=== PATIENT | female | born 1950 | race Caucasian/White ===

== ENCOUNTER 2017-01-09 16:29 | Inpatient (IN) | payer MEDICARE ==
[~2017-01-09 16:29] MED LIST: ABILIFY2 MG PO; ACCUPRIL20 MG; AMBIEN10 MG; AMBIEN10 MG PO; AMBIEN5 MG PO; AMOX TR-K CLV1 EAC4 PO; AMOXICILLIN875 MG PO; ANEXSIA 5/325 M1 TAB; APIDRA100 U/M; APIDRA100 U/M SQ; ASPIRIN EC81 M1 PO; ASPIRIN EC81 MG PO; CALCIUM; CALCIUM 600 MG1 EACH PO; CALCIUM WITH VI1 TAB PO; CALCIUM/VIT D PO; CALCIUM600 MG PO; CARVEDILOL25 MG PO; CEFDINIR300 M1 PO; COLACE100 M1 PO; COREG12.5 M1 PO; COREG25 M1 PO; CORGARD40 M1 PO; CORGARD40 MG; CPAP; CYCLOBENZAPRINE10 M1 PO; CYCLOBENZAPRINE5 M1 PO; DELTASONE10 MG PO; DULCOLAX10 MG RC; DULERA 200 MCG/13 G1 INH; EQL FISH OIL 1,1 CA1 PO; FERRIC CITRATE210 MG PO; FLEXERIL10 MG; FLEXERIL10 MG PO; FLONASE ALLERG9.9 ML; FLONASE16 G3 NS; FLONASE16 GM; FLUOXETINE HCL40 M1 PO; FUROSEMIDE40 M1 PO; FUROSEMIDE80 M2 PO; GLUCOPHAGE500 MG; GLUCOPHAGE500 MG PO; HUMALOG100 UNIT/1 SC; HUMALOG100 UNITS/; HYDRALAZINE HCL50 M1 PO; HYDROCHLOROTH12.5 M1; HYDROCHLOROTH12.5 MG PO; HYDROCODON-ACE1 EA16 PO; IPRAT-ALBUT 0.5-3 ML IH; IPRAT-ALBUT 0.5-3 ML NEB; ISOSORBIDE DINI30 M1 PO; ISOSORBIDE MONO30 M4 PO; KAYEXALATE453.6 G1 PO; LANTUS100 U/ML; LANTUS100 U/ML SC; LASIX20 MG PO; LASIX40 M1 PO; LASIX40 MG; LASIX40 MG PO; LASIX80 M1 PO; LASIX80 MG; LASIX80 MG PO; LEVAQUIN750 MG PO; LEVEMIR100 U/M SC; LEVEMIR100 UNITS/ SC; LISINOPRIL10 M1 PO; LISINOPRIL20 MG PO; LORTAB 7.5/5001 EA PO; LORTAB 7.5/5001 TAB; MIDRIN CAPSULE1 CAP; MIDRIN CAPSULE1 CAP PO; MIRALAX17 G2 PO; MULTI VITAMIN1 EACH PO; NITROGLYCERIN0.4 M2 SL; NORCO 5-325 TA1 EACH PO; NORVASC5 M1 PO; NORVASC5 M2 PO; NOVOLOG FL100 UNIT/2 SC; NOVOLOG100 U/M SQ; NOVOLOG100 UNITS/ SC; OXYGEN; PERCOCET; PLAVIX75 M1 PO; PLAVIX75 MG; PLAVIX75 MG PO; POTASSIUM; POTASSIUM CHLO10 MEQ PO; POTASSIUM CHLO20 MEQ PO; PRAVACHOL20 MG; PRAVACHOL20 MG PO; PRAVACHOL40 M1 PO; PRAVACHOL40 MG PO; PRINIVIL5 M1 PO; PROMETHAZINE25 MG PO; PROZAC20 M3 PO; PROZAC20 MG; PROZAC20 MG PO; RENVELA800 M1 PO; RISPERDAL0.5 M1 PO; SEROQUEL100 M1 PO; SEROQUEL100 M2 PO; SKELAXIN800 MG PO; STOP HOME MEDICATION; TEMAZEPAM30 MG; TEMAZEPAM30 MG PO; TRESIBA FL100 UNIT/1 SC; TYLENOL325 M1 PO; VITAMIN B12500 MCG PO; XANAX0.5 M1 PO; XANAX0.5 MG; XANAX0.5 MG PO; XANAX1 MG; XANAX1 MG PO; ZOFRAN ODT4 MG PO; ZYRTEC10 M7 PO
[2017-01-09 17:52] LABS: BASO % 0.2 % (0-2); EOS % 1.9 % (0-7); EOSINOPHIL ABSOLUTE COUNT 0.2 tho/cmm (0.0-0.7); HCT-HEMATOCRIT 43.2 % (34.0-49.0); HGB-HEMOGLOBIN 14.5 gm/dl (12.0-15.5); IMMATURE GRANULOCYTES ABSOLUTE 0.06 tho/cmm (0-0.03); IMMATURE GRANULOCYTES PERCENT 0.5 % (0-0.3); LYMPH ABSOLUTE COUNT 1.3 tho/cmm (0.8-4.5); MCH (MEAN CORPUSCULAR HGB) 33.2 pg (28.0-32.0); MCHC MEAN CORPUSCULAR HGB CONC 33.6 % (32.0-36.0); MCV (MEAN CELL VOLUME) 98.9 fl (82.0-96.0); MEAN PLATELET VOLUME 10.6 cmc (9.4-12.4); MONO % 7.2 % (0-12); MONOCYTE ABSOLUTE COUNT 0.8 tho/cmm (0.0-1.2); NEUTROPHIL ABSOLUTE COUNT 9.1 tho/cmm (1.6-8.0); NEUTROPHIL-AUTOMATED 9.1 tho/cmm (1.6-8.0); NEUTROPHILS % 79.2 % (40-80); PLATELET COUNT 335 tho/cmm (150-450); RED BLOOD COUNT 4.37 mil/cmm (4.00-5.20); RED CELL DISTRIBUTION WIDTH 13.7 % (12.4-16.4); WHITE BLOOD COUNT 11.5 tho/cmm (4.0-10.0)
[2017-01-09 18:21] LABS: URINE BILIRUBIN NEGATIVE (NEG); URINE BLOOD SMALL (NEG); URINE GLUCOSE (UA) NEGATIVE (NEG); URINE KETONE NEGATIVE (NEG); URINE LEUKOCYTE ESTERASE POSITIVE (NEG); URINE NITRITE NEGATIVE (NEG); URINE PROTEIN MODERATE (NEG)
[2017-01-09 18:22] LABS: URINE APPEARANCE CLEAR; URINE COLOR YELLOW
[2017-01-09 18:27] LABS: URINE AMORPHOUS 1+; URINE BACTERIA 1+
[2017-01-09 18:28] LABS: URINE EPITHELIAL CELLS 15-30 /[HPF] (0-10)
[2017-01-09 19:21] LABS: ALB/GLOB RATIO 0.6 (0.8-2.0); ALBUMIN 3.9 g/dl (3.5-5.0); ALKALINE PHOSPHATASE 261 U/L (33-138); BILIRUBIN,TOTAL 0.2 mg/dl (0-1.5); BLOOD UREA NITROGEN 28 mg/dl (6-24); CARBON DIOXIDE-VENOUS 28 mmol/L (22-32); CHLORIDE 93 mmol/l (96-110); CREATININE 3.57 mg/dl (0.50-1.10); GLUCOSE 256 mg/dL (70-110); SODIUM 133 mmol/L (135-145); eGFR VALUE FOR BLACK 15 mL/Min
[2017-01-09 19:23] LABS: ALT/SGPT 23 U/L (12-78); ANION GAP 17 mmol/L (0-20); AST/SGOT 19 U/L (10-40); MAGNESIUM 2.2 mg/dl (1.3-2.6); POTASSIUM 4.7 mmol/L (3.7-5.1)
[2017-01-09 19:34] LABS: PROCALCITONIN 0.34 ng/ml (0.05-0.09)
[2017-01-10 05:15] LABS: BASO % 0.1 % (0-2); EOS % 0.1 % (0-7); HGB-HEMOGLOBIN 13.8 gm/dl (12.0-15.5); IMMATURE GRANULOCYTES ABSOLUTE 0.04 tho/cmm (0-0.03); IMMATURE GRANULOCYTES PERCENT 0.3 % (0-0.3); LYMPH % 7.9 % (20-45); LYMPH ABSOLUTE COUNT 1.3 tho/cmm (0.8-4.5); MCH (MEAN CORPUSCULAR HGB) 33.2 pg (28.0-32.0); MCHC MEAN CORPUSCULAR HGB CONC 33.7 % (32.0-36.0); MCV (MEAN CELL VOLUME) 98.6 fl (82.0-96.0); MEAN PLATELET VOLUME 10.7 cmc (9.4-12.4); MONO % 7.2 % (0-12); MONOCYTE ABSOLUTE COUNT 1.1 tho/cmm (0.0-1.2); NEUTROPHIL ABSOLUTE COUNT 13.3 tho/cmm (1.6-8.0); NEUTROPHIL-AUTOMATED 13.3 tho/cmm (1.6-8.0); NEUTROPHILS % 84.4 % (40-80); PLATELET COUNT 281 tho/cmm (150-450); RED BLOOD COUNT 4.16 mil/cmm (4.00-5.20); RED CELL DISTRIBUTION WIDTH 13.8 % (12.4-16.4); WHITE BLOOD COUNT 15.8 tho/cmm (4.0-10.0)
[2017-01-10 05:39] LABS: PROTHROMBIN TIME 11.5 SECONDS (9.0-13.6)
[2017-01-10 05:51] LABS: ALB/GLOB RATIO 0.6 (0.8-2.0); ALBUMIN 3.6 g/dl (3.5-5.0); ALKALINE PHOSPHATASE 245 U/L (33-138); ALT/SGPT 19 U/L (12-78); BILIRUBIN,TOTAL 0.3 mg/dl (0-1.5); C-REACTIVE PROTEIN 0.8 mg/dl (0-0.9); CALCIUM 9.6 mg/dl (8.5-10.5); CARBON DIOXIDE-VENOUS 24 mmol/L (22-32); CHLORIDE 93 mmol/l (96-110); GLUCOSE 350 mg/dL (70-110); PHOSPHOROUS 7.4 mg/dl (2.5-4.9); SODIUM 130 mmol/L (135-145)
[2017-01-10 05:53] LABS: ANION GAP 19 mmol/L (0-20); AST/SGOT 25 U/L (10-40); BLOOD UREA NITROGEN 43 mg/dl (6-24); CREATININE 4.52 mg/dl (0.50-1.10); MAGNESIUM 2.1 mg/dl (1.3-2.6); eGFR VALUE FOR BLACK 11 mL/Min
[2017-01-10 05:54] LABS: TSH-THYROID STIMULATING HORM. 2.98 uIU/ml (0.40-3.80)
[2017-01-10 06:02] LABS: POTASSIUM 6.4 mmol/L (3.7-5.1)
[2017-01-10 07:37] LABS: ESR-ERYTHROCYTE SED RATE 47 mm/hr (0-30)
[2017-01-10 14:11] LABS: POTASSIUM 5.2 mmol/L (3.7-5.1)
[2017-01-11 06:08] LABS: BASO % 0.4 % (0-2); EOS % 2.7 % (0-7); EOSINOPHIL ABSOLUTE COUNT 0.3 tho/cmm (0.0-0.7); HCT-HEMATOCRIT 35.2 % (34.0-49.0); HGB-HEMOGLOBIN 11.7 gm/dl (12.0-15.5); IMMATURE GRANULOCYTES ABSOLUTE 0.03 tho/cmm (0-0.03); IMMATURE GRANULOCYTES PERCENT 0.3 % (0-0.3); LYMPH % 21.7 % (20-45); LYMPH ABSOLUTE COUNT 2.3 tho/cmm (0.8-4.5); MCH (MEAN CORPUSCULAR HGB) 32.6 pg (28.0-32.0); MCHC MEAN CORPUSCULAR HGB CONC 33.2 % (32.0-36.0); MCV (MEAN CELL VOLUME) 98.1 fl (82.0-96.0); MEAN PLATELET VOLUME 10.2 cmc (9.4-12.4); MONO % 10.4 % (0-12); MONOCYTE ABSOLUTE COUNT 1.1 tho/cmm (0.0-1.2); NEUTROPHIL ABSOLUTE COUNT 6.8 tho/cmm (1.6-8.0); NEUTROPHIL-AUTOMATED 6.8 tho/cmm (1.6-8.0); NEUTROPHILS % 64.5 % (40-80); PLATELET COUNT 270 tho/cmm (150-450); RED BLOOD COUNT 3.59 mil/cmm (4.00-5.20); RED CELL DISTRIBUTION WIDTH 13.7 % (12.4-16.4); WHITE BLOOD COUNT 10.6 tho/cmm (4.0-10.0)
[2017-01-11 06:25] LABS: ANION GAP 16 mmol/L (0-20); CALCIUM 9.2 mg/dl (8.5-10.5); CARBON DIOXIDE-VENOUS 27 mmol/L (22-32); CHLORIDE 88 mmol/l (96-110); GLUCOSE 268 mg/dL (70-110); PHOSPHOROUS 7.3 mg/dl (2.5-4.9); POTASSIUM 4.8 mmol/L (3.7-5.1); SODIUM 126 mmol/L (135-145); eGFR VALUE FOR BLACK 8 mL/Min
[2017-01-11 06:33] LABS: BLOOD UREA NITROGEN 73 mg/dl (6-24); CREATININE 6.07 mg/dl (0.50-1.10)
[2017-01-12 07:02] LABS: ANION GAP 22 mmol/L (0-20); BLOOD UREA NITROGEN 93 mg/dl (6-24); CALCIUM 8.6 mg/dl (8.5-10.5); CARBON DIOXIDE-VENOUS 22 mmol/L (22-32); CHLORIDE 90 mmol/l (96-110); CREATININE 6.86 mg/dl (0.50-1.10); GLUCOSE 258 mg/dL (70-110); SODIUM 128 mmol/L (135-145); eGFR VALUE FOR BLACK 7 mL/Min
[2017-01-12 07:09] LABS: POTASSIUM 5.6 mmol/L (3.7-5.1)
--- NOTE | 2017-01-12 12:48 | NUR ---
UNABLE TO DO 1200 ASSESSMENT DUE TO PATIENT BEING UP IN DIALYSIS. PATIENT HAS BEEN IN PROCEDURES ALL DAY SO WASN'T ABLE TO GET ORTHOSTATICS THIS AM.
[2017-01-13 05:53] LABS: BASO % 0.4 % (0-2); EOS % 4.4 % (0-7); EOSINOPHIL ABSOLUTE COUNT 0.3 tho/cmm (0.0-0.7); HCT-HEMATOCRIT 29.6 % (34.0-49.0); HGB-HEMOGLOBIN 9.8 gm/dl (12.0-15.5); IMMATURE GRANULOCYTES ABSOLUTE 0.02 tho/cmm (0-0.03); IMMATURE GRANULOCYTES PERCENT 0.3 % (0-0.3); LYMPH % 20.2 % (20-45); LYMPH ABSOLUTE COUNT 1.5 tho/cmm (0.8-4.5); MCH (MEAN CORPUSCULAR HGB) 32.8 pg (28.0-32.0); MCHC MEAN CORPUSCULAR HGB CONC 33.1 % (32.0-36.0); MEAN PLATELET VOLUME 10.1 cmc (9.4-12.4); MONO % 12.2 % (0-12); MONOCYTE ABSOLUTE COUNT 0.9 tho/cmm (0.0-1.2); NEUTROPHIL ABSOLUTE COUNT 4.5 tho/cmm (1.6-8.0); NEUTROPHIL-AUTOMATED 4.5 tho/cmm (1.6-8.0); NEUTROPHILS % 62.5 % (40-80); PLATELET COUNT 222 tho/cmm (150-450); RED BLOOD COUNT 2.99 mil/cmm (4.00-5.20); RED CELL DISTRIBUTION WIDTH 13.9 % (12.4-16.4); WHITE BLOOD COUNT 7.3 tho/cmm (4.0-10.0)
[2017-01-13 05:59] LABS: INR 0.9 INR (0.9-1.1); PROTHROMBIN TIME 10.4 SECONDS (9.0-13.6)
[2017-01-13 06:10] LABS: CALCIUM 8.5 mg/dl (8.5-10.5); CARBON DIOXIDE-VENOUS 29 mmol/L (22-32); CHLORIDE 97 mmol/l (96-110); SODIUM 135 mmol/L (135-145); eGFR VALUE FOR BLACK 12 mL/Min
[2017-01-13 06:11] LABS: ANION GAP 13 mmol/L (0-20); BLOOD UREA NITROGEN 43 mg/dl (6-24); CREATININE 4.23 mg/dl (0.50-1.10); GLUCOSE 98 mg/dL (70-110); POTASSIUM 4.1 mmol/L (3.7-5.1)
[2017-01-13] MEDS ORDERED: NYSTATIN15 G1 TP (15:12)
[2017-01-13] MEDS ORDERED: NYAMYC15 GM EXT (15:14)
[2017-01-13] MEDS ORDERED: COREG6.25 M1 PO (15:16)
[2017-05-10] MEDS ORDERED: NYSTATIN100000 UNI PO (16:30)
[2017-05-19] MEDS ORDERED: ISOSORBIDE DINI10 M1 PO (09:49)
[2017-05-19] MEDS ORDERED: EFFEXOR XR37.5 M1 PO (09:50)
[2017-06-18] MEDS ORDERED: POLYETHYLENE G255 G1 PO (08:39)
[2017-06-18] MEDS ORDERED: SENNA PLUS TAB1 EAC1 PO (08:40)
[2017-06-25] MEDS ORDERED: TYLENOL EXTRA500 M1 PO (14:43)
[2017-06-25] MEDS ORDERED: BENADRYL25 M3 PO (14:44)
[2017-06-25] MEDS ORDERED: CETIRIZINE HCL10 M1 PO (14:45)
[2017-06-25] MEDS ORDERED: FLONASE ALLERG9.9 ML (14:46)
[2017-06-25] MEDS ORDERED: KAYEXALATE PO (14:54)
[2017-06-25] MEDS ORDERED: AURYXIA PO (14:55)
[2017-06-25] MEDS ORDERED: XANAX0.5 M1 PO (14:57)
[2017-06-25] MEDS ORDERED: HYDROCODON-ACE1 EA16 PO (14:58)
[2017-06-25] MEDS ORDERED: CYCLOBENZAPRINE10 M1 PO (14:59)
[2017-06-25] MEDS ORDERED: [UNRECOGNIZED DRUG - OTHER] TOP (15:23)
[2017-06-25] MEDS ORDERED: ANTIFUNGAL POWDER TOP (15:23)
[2017-06-25] MEDS ORDERED: INTERDRY (15:24)
[2017-06-25] MEDS ORDERED: NOVOLOG FL100 UNIT/2 SC ×2 (15:51→15:53)
[2017-06-25] MEDS ORDERED: OXYGEN (16:07)
== END 2017-01-13 18:00 | DRG 252 ==
LOC: EDMED 16:29 → EMR2 21:17 → PCUA 23:47
PROVIDERS: Family Medicine; Hospitalist; Internal Medicine; Internal Medicine Nephrology; Radiology Diagnostic Radiology; Registered Nurse; ADMIT Internal Medicine
PROC: 05PY03Z Removal of Infusion Device from Upper Vein, Open Approach (ICD-10-PCS; principal; 2017-01-13)
DX: I95.1 Orthostatic hypotension (principal); N18.6 End stage renal disease; I13.2 Hypertensive heart and chronic kidney disease with heart failure and with stage 5 chronic kidney disease, or end stage renal disease; J96.11 Chronic respiratory failure with hypoxia; E87.1 Hypo-osmolality and hyponatremia; N39.0 Urinary tract infection, site not specified; Z68.42 Body mass index [BMI] 45.0-49.9, adult
CPT/HCPCS: A9500; G8978-GP-CK; G8979-GP-CJ; J0696; J0780; J1650; J1815; J2405; J2785; J7050; P9612

== ENCOUNTER 2017-02-28 03:11 | Emergency (ER) | payer MEDICARE ==
[~2017-02-28 03:11] MED LIST changes: +COREG6.25 M1 PO; +NYAMYC15 GM EXT; +NYSTATIN15 G1 TP
[2017-02-28 04:58] LABS: BASO % 0.3 % (0-2); EOS % 3.3 % (0-7); EOSINOPHIL ABSOLUTE COUNT 0.3 tho/cmm (0.0-0.7); HCT-HEMATOCRIT 31.7 % (34.0-49.0); HGB-HEMOGLOBIN 10.6 gm/dl (12.0-15.5); IMMATURE GRANULOCYTES ABSOLUTE 0.04 tho/cmm (0-0.03); IMMATURE GRANULOCYTES PERCENT 0.4 % (0-0.3); LYMPH ABSOLUTE COUNT 1.8 tho/cmm (0.8-4.5); MCH (MEAN CORPUSCULAR HGB) 32.8 pg (28.0-32.0); MCHC MEAN CORPUSCULAR HGB CONC 33.4 % (32.0-36.0); MCV (MEAN CELL VOLUME) 98.1 fl (82.0-96.0); MEAN PLATELET VOLUME 9.4 cmc (9.4-12.4); MONO % 8.4 % (0-12); MONOCYTE ABSOLUTE COUNT 0.9 tho/cmm (0.0-1.2); NEUTROPHIL ABSOLUTE COUNT 7.4 tho/cmm (1.6-8.0); NEUTROPHIL-AUTOMATED 7.4 tho/cmm (1.6-8.0); NEUTROPHILS % 70.6 % (40-80); PLATELET COUNT 322 tho/cmm (150-450); RED BLOOD COUNT 3.23 mil/cmm (4.00-5.20); RED CELL DISTRIBUTION WIDTH 13.6 % (12.4-16.4); WHITE BLOOD COUNT 10.5 tho/cmm (4.0-10.0)
[2017-02-28 05:14] LABS: ALB/GLOB RATIO 0.6 (0.8-2.0); ALBUMIN 3.1 g/dl (3.5-5.0); ALKALINE PHOSPHATASE 289 U/L (33-138); ALT/SGPT 32 U/L (12-78); ANION GAP 14 mmol/L (0-20); AST/SGOT 21 U/L (10-40); BILIRUBIN,TOTAL 0.3 mg/dl (0-1.5); BLOOD UREA NITROGEN 32 mg/dl (6-24); CALCIUM 7.8 mg/dl (8.5-10.5); CARBON DIOXIDE-VENOUS 25 mmol/L (22-32); CHLORIDE 96 mmol/l (96-110); CREATININE 4.07 mg/dl (0.50-1.10); GLUCOSE 225 mg/dL (70-110); POTASSIUM 4.1 mmol/L (3.7-5.1); SODIUM 131 mmol/L (135-145); eGFR VALUE FOR BLACK 13 mL/Min
[2017-05-10] MEDS ORDERED: NYSTATIN100000 UNI PO (16:30)
[2017-05-19] MEDS ORDERED: ISOSORBIDE DINI10 M1 PO (09:49)
[2017-05-19] MEDS ORDERED: EFFEXOR XR37.5 M1 PO (09:50)
[2017-06-18] MEDS ORDERED: POLYETHYLENE G255 G1 PO (08:39)
[2017-06-18] MEDS ORDERED: SENNA PLUS TAB1 EAC1 PO (08:40)
[2017-06-25] MEDS ORDERED: TYLENOL EXTRA500 M1 PO (14:43)
[2017-06-25] MEDS ORDERED: BENADRYL25 M3 PO (14:44)
[2017-06-25] MEDS ORDERED: CETIRIZINE HCL10 M1 PO (14:45)
[2017-06-25] MEDS ORDERED: FLONASE ALLERG9.9 ML (14:46)
[2017-06-25] MEDS ORDERED: KAYEXALATE PO (14:54)
[2017-06-25] MEDS ORDERED: AURYXIA PO (14:55)
[2017-06-25] MEDS ORDERED: XANAX0.5 M1 PO (14:57)
[2017-06-25] MEDS ORDERED: HYDROCODON-ACE1 EA16 PO (14:58)
[2017-06-25] MEDS ORDERED: CYCLOBENZAPRINE10 M1 PO (14:59)
[2017-06-25] MEDS ORDERED: ANTIFUNGAL POWDER TOP (15:23)
[2017-06-25] MEDS ORDERED: [UNRECOGNIZED DRUG - OTHER] TOP (15:23)
[2017-06-25] MEDS ORDERED: INTERDRY (15:24)
[2017-06-25] MEDS ORDERED: NOVOLOG FL100 UNIT/2 SC ×2 (15:51→15:53)
[2017-06-25] MEDS ORDERED: OXYGEN (16:07)
== END 2017-02-28 05:41 ==
LOC: EDMED 03:11
PROVIDERS: Emergency Medicine Emergency Medical Services
DX: F41.9 Anxiety disorder, unspecified (principal); E11.22 Type 2 diabetes mellitus with diabetic chronic kidney disease; N18.9 Chronic kidney disease, unspecified; J45.909 Unspecified asthma, uncomplicated; J44.9 Chronic obstructive pulmonary disease, unspecified; Z79.4 Long term (current) use of insulin; Z79.82 Long term (current) use of aspirin; Z79.899 Other long term (current) drug therapy

== ENCOUNTER 2017-04-07 11:16 | Inpatient (IN) | payer MEDICARE ==
[2017-04-07] MEDS ORDERED: SENSIPAR30 M1 PO (11:56)
[2017-04-07 12:19] LABS: BASO % 0.2 % (0-2); EOS % 1.3 % (0-7); EOSINOPHIL ABSOLUTE COUNT 0.2 tho/cmm (0.0-0.7); HCT-HEMATOCRIT 31.1 % (34.0-49.0); HGB-HEMOGLOBIN 10.9 gm/dl (12.0-15.5); IMMATURE GRANULOCYTES PERCENT 0.7 % (0-0.3); LYMPH % 10.1 % (20-45); LYMPH ABSOLUTE COUNT 1.4 tho/cmm (0.8-4.5); MCH (MEAN CORPUSCULAR HGB) 33.1 pg (28.0-32.0); MCV (MEAN CELL VOLUME) 94.5 fl (82.0-96.0); MEAN PLATELET VOLUME 10.3 cmc (9.4-12.4); MONO % 9.3 % (0-12); MONOCYTE ABSOLUTE COUNT 1.3 tho/cmm (0.0-1.2); NEUTROPHIL ABSOLUTE COUNT 10.7 tho/cmm (1.6-8.0); NEUTROPHIL-AUTOMATED 10.7 tho/cmm (1.6-8.0); NEUTROPHILS % 78.4 % (40-80); PLATELET COUNT 322 tho/cmm (150-450); RED BLOOD COUNT 3.29 mil/cmm (4.00-5.20); RED CELL DISTRIBUTION WIDTH 13.7 % (12.4-16.4); WHITE BLOOD COUNT 13.6 tho/cmm (4.0-10.0)
[2017-04-07 12:27] LABS: INR 0.9 INR (0.9-1.1); PROTHROMBIN TIME 10.1 SECONDS (9.0-13.6)
[2017-04-07 12:42] LABS: ALB/GLOB RATIO 0.6 (0.8-2.0); ALT/SGPT 538 U/L (12-78); BILIRUBIN,TOTAL 3.4 mg/dl (0-1.5); BLOOD UREA NITROGEN 54 mg/dl (6-24); CALCIUM 7.9 mg/dl (8.5-10.5); CARBON DIOXIDE-VENOUS 26 mmol/L (22-32); CHLORIDE 94 mmol/l (96-110); CREATININE 5.53 mg/dl (0.50-1.10); GLUCOSE 289 mg/dL (70-110); PHOSPHOROUS 4.9 mg/dl (2.5-4.9); SODIUM 131 mmol/L (135-145); eGFR VALUE FOR BLACK 9 mL/Min
[2017-04-07 12:49] LABS: ALKALINE PHOSPHATASE 546 U/L (33-138); ANION GAP 15 mmol/L (0-20); AST/SGOT 1466 U/L (10-40); LIPASE 13986 U/L (73-393); MAGNESIUM 2.1 mg/dl (1.8-2.6); POTASSIUM 4.2 mmol/L (3.7-5.1)
[2017-04-07 14:13] LABS: URINE APPEARANCE CLOUDY; URINE BILIRUBIN SMALL (NEG); URINE BLOOD LARGE (NEG); URINE COLOR BROWN; URINE GLUCOSE (UA) MODERATE (NEG); URINE KETONE SMALL (NEG); URINE LEUKOCYTE ESTERASE POSITIVE (NEG); URINE NITRITE POSITIVE (NEG); URINE PROTEIN LARGE (NEG)
[2017-04-07 14:23] LABS: URINE RBC 20-25 /[HPF] (0-5)
[2017-04-07 14:25] LABS: URINE BACTERIA 2+
[2017-04-07 21:51] LABS: PROCALCITONIN 4.15 ng/ml (0.05-0.09)
[2017-04-08 05:38] LABS: BASO % 0.1 % (0-2); EOS % 0.3 % (0-7); EOSINOPHIL ABSOLUTE COUNT 0.1 tho/cmm (0.0-0.7); HCT-HEMATOCRIT 30.9 % (34.0-49.0); HGB-HEMOGLOBIN 10.5 gm/dl (12.0-15.5); IMMATURE GRANULOCYTES ABSOLUTE 0.09 tho/cmm (0-0.03); IMMATURE GRANULOCYTES PERCENT 0.6 % (0-0.3); LYMPH % 6.3 % (20-45); MCH (MEAN CORPUSCULAR HGB) 32.8 pg (28.0-32.0); MCV (MEAN CELL VOLUME) 96.6 fl (82.0-96.0); MEAN PLATELET VOLUME 10.1 cmc (9.4-12.4); MONO % 9.9 % (0-12); MONOCYTE ABSOLUTE COUNT 1.5 tho/cmm (0.0-1.2); NEUTROPHIL ABSOLUTE COUNT 12.5 tho/cmm (1.6-8.0); NEUTROPHIL-AUTOMATED 12.5 tho/cmm (1.6-8.0); NEUTROPHILS % 82.8 % (40-80); PLATELET COUNT 319 tho/cmm (150-450); RED CELL DISTRIBUTION WIDTH 13.7 % (12.4-16.4); WHITE BLOOD COUNT 15.1 tho/cmm (4.0-10.0)
[2017-04-08 05:54] LABS: ALB/GLOB RATIO 0.6 (0.8-2.0); ALBUMIN 2.7 g/dl (3.5-5.0); ALT/SGPT 648 U/L (12-78); BILIRUBIN,TOTAL 4.8 mg/dl (0-1.5); BLOOD UREA NITROGEN 66 mg/dl (6-24); CALCIUM 7.6 mg/dl (8.5-10.5); CARBON DIOXIDE-VENOUS 25 mmol/L (22-32); CHLORIDE 91 mmol/l (96-110); CHOLESTEROL 149 mg/dl (120-200); CREATININE 6.61 mg/dl (0.50-1.10); GLUCOSE 405 mg/dL (70-110); HDL CHOLESTEROL 55 mg/dl (40-60); LDL CHOLESTEROL 73 mg/dl (0-99); SODIUM 128 mmol/L (135-145); TRIGLYCERIDES 108 mg/dl (<149); VLDL 22 mg/dl (0-30); eGFR VALUE FOR BLACK 7 mL/Min
[2017-04-08 05:57] LABS: ALKALINE PHOSPHATASE 671 U/L (33-138); ANION GAP 17 mmol/L (0-20); AST/SGOT 804 U/L (10-40); PHOSPHOROUS 6.5 mg/dl (2.5-4.9); POTASSIUM 5.3 mmol/L (3.7-5.1)
--- NOTE | 2017-04-08 21:00 | NUR ---
VIRTUAL CARE NOTE: UNABLE TO ROUND DUE TO CAMERA MISFUNCTION.
[2017-04-09 06:19] LABS: BASO % 0.1 % (0-2); EOS % 0.2 % (0-7); HCT-HEMATOCRIT 29.1 % (34.0-49.0); IMMATURE GRANULOCYTES ABSOLUTE 0.09 tho/cmm (0-0.03); IMMATURE GRANULOCYTES PERCENT 0.6 % (0-0.3); LYMPH ABSOLUTE COUNT 1.1 tho/cmm (0.8-4.5); MCH (MEAN CORPUSCULAR HGB) 33.3 pg (28.0-32.0); MCHC MEAN CORPUSCULAR HGB CONC 34.4 % (32.0-36.0); MEAN PLATELET VOLUME 10.1 cmc (9.4-12.4); MONO % 8.3 % (0-12); MONOCYTE ABSOLUTE COUNT 1.3 tho/cmm (0.0-1.2); NEUTROPHIL ABSOLUTE COUNT 12.9 tho/cmm (1.6-8.0); NEUTROPHIL-AUTOMATED 12.9 tho/cmm (1.6-8.0); NEUTROPHILS % 83.8 % (40-80); PLATELET COUNT 321 tho/cmm (150-450); RED CELL DISTRIBUTION WIDTH 13.8 % (12.4-16.4); WHITE BLOOD COUNT 15.4 tho/cmm (4.0-10.0)
[2017-04-09 06:36] LABS: ALB/GLOB RATIO 0.5 (0.8-2.0); ALBUMIN 2.4 g/dl (3.5-5.0); ALT/SGPT 411 U/L (12-78); BLOOD UREA NITROGEN 37 mg/dl (6-24); CALCIUM 8.1 mg/dl (8.5-10.5); CARBON DIOXIDE-VENOUS 26 mmol/L (22-32); CHLORIDE 91 mmol/l (96-110); GLUCOSE 391 mg/dL (70-110); PHOSPHOROUS 6.4 mg/dl (2.5-4.9); SODIUM 128 mmol/L (135-145)
[2017-04-09 06:43] LABS: ALKALINE PHOSPHATASE 587 U/L (33-138); ANION GAP 15 mmol/L (0-20); AST/SGOT 188 U/L (10-40); CREATININE 4.75 mg/dl (0.50-1.10); LIPASE 467 U/L (73-393); POTASSIUM 4.4 mmol/L (3.7-5.1); eGFR VALUE FOR BLACK 10 mL/Min
[2017-04-10 05:45] LABS: ANION GAP 16 mmol/L (0-20); BLOOD UREA NITROGEN 48 mg/dl (6-24); CARBON DIOXIDE-VENOUS 24 mmol/L (22-32); CHLORIDE 91 mmol/l (96-110); POTASSIUM 4.2 mmol/L (3.7-5.1); SODIUM 127 mmol/L (135-145); eGFR VALUE FOR BLACK 7 mL/Min
[2017-04-10 05:46] LABS: CREATININE 6.41 mg/dl (0.50-1.10); GLUCOSE 138 mg/dL (70-110)
[2017-04-11 05:49] LABS: ALB/GLOB RATIO 0.5 (0.8-2.0); ALBUMIN 2.3 g/dl (3.5-5.0); ALKALINE PHOSPHATASE 393 U/L (33-138); BILIRUBIN,TOTAL 0.6 mg/dl (0-1.5); BLOOD UREA NITROGEN 26 mg/dl (6-24); CALCIUM 7.2 mg/dl (8.5-10.5); CARBON DIOXIDE-VENOUS 23 mmol/L (22-32); CHLORIDE 98 mmol/l (96-110); PHOSPHOROUS 4.5 mg/dl (2.5-4.9); SODIUM 133 mmol/L (135-145)
[2017-04-11 05:56] LABS: ALT/SGPT 167 U/L (12-78); ANION GAP 17 mmol/L (0-20); CREATININE 4.63 mg/dl (0.50-1.10); GLUCOSE 236 mg/dL (70-110); LIPASE 126 U/L (73-393); eGFR VALUE FOR BLACK 11 mL/Min
[2017-04-11 05:57] LABS: AST/SGOT 35 U/L (10-40)
[2017-04-11 06:32] LABS: HGB-HEMOGLOBIN 9.5 gm/dl (12.0-15.5); PLATELET COUNT 322 tho/cmm (150-450)
[2017-04-12 05:30] LABS: CALCIUM 7.3 mg/dl (8.5-10.5); CARBON DIOXIDE-VENOUS 21 mmol/L (22-32); CHLORIDE 98 mmol/l (96-110); GLUCOSE 238 mg/dL (70-110); SODIUM 133 mmol/L (135-145); eGFR VALUE FOR BLACK 7 mL/Min
[2017-04-12 05:35] LABS: ANION GAP 19 mmol/L (0-20); BLOOD UREA NITROGEN 40 mg/dl (6-24); CREATININE 6.65 mg/dl (0.50-1.10); POTASSIUM 5.1 mmol/L (3.7-5.1)
[2017-04-12] MEDS ORDERED: PROTONIX40 M2 PO (16:41)
--- NOTE | 2017-04-12 19:29 | NUR ---
VIRTUAL CARE NOTE: UNABLE TO ROUND, CAMERA MALFUNCTION.
[2017-04-13 05:02] LABS: HGB-HEMOGLOBIN 9.3 gm/dl (12.0-15.5); PLATELET COUNT 341 tho/cmm (150-450)
[2017-04-13 05:12] LABS: ANION GAP 17 mmol/L (0-20); BLOOD UREA NITROGEN 34 mg/dl (6-24); CALCIUM 7.4 mg/dl (8.5-10.5); CARBON DIOXIDE-VENOUS 23 mmol/L (22-32); CHLORIDE 97 mmol/l (96-110); CREATININE 6.19 mg/dl (0.50-1.10); GLUCOSE 297 mg/dL (70-110); POTASSIUM 4.6 mmol/L (3.7-5.1); SODIUM 132 mmol/L (135-145); eGFR VALUE FOR BLACK 8 mL/Min
--- NOTE | 2017-04-13 16:30 | NUR ---
VIRTUAL CARE NOTE: ROUND AT BEDSIDE, PLAN DC TODAY PT CALLED HER DAUGHTER, SHE CAN'T COME UNTIL AFTER 6PM. PT WANTS TO DO DC TEACHING WHILE DAUGHTER HERE.
--- NOTE | 2017-04-13 18:30 | NUR ---
VIRTUAL CARE NOTE: PT SITTING ON CHAIR, DAUGHTER AT BEDSIDE. PT AND DAUGTHER FOR DISCHARGE INSTRUCTIONS. INFORMATION GIVEN DUAGHTER, ALL QUESTIONS ANSWERED. DUAGHTER DENIES FURTHER QUESTONS OR NEEDS. INFROMED FLOOR NURSE DISCHARGE TEACHING DONE.
[2017-05-10] MEDS ORDERED: NYSTATIN100000 UNI PO (16:30)
[2017-05-19] MEDS ORDERED: ISOSORBIDE DINI10 M1 PO (09:49)
[2017-05-19] MEDS ORDERED: EFFEXOR XR37.5 M1 PO (09:50)
[2017-06-18] MEDS ORDERED: POLYETHYLENE G255 G1 PO (08:39)
[2017-06-18] MEDS ORDERED: SENNA PLUS TAB1 EAC1 PO (08:40)
[2017-06-25] MEDS ORDERED: TYLENOL EXTRA500 M1 PO (14:43)
[2017-06-25] MEDS ORDERED: BENADRYL25 M3 PO (14:44)
[2017-06-25] MEDS ORDERED: CETIRIZINE HCL10 M1 PO (14:45)
[2017-06-25] MEDS ORDERED: FLONASE ALLERG9.9 ML (14:46)
[2017-06-25] MEDS ORDERED: KAYEXALATE PO (14:54)
[2017-06-25] MEDS ORDERED: AURYXIA PO (14:55)
[2017-06-25] MEDS ORDERED: XANAX0.5 M1 PO (14:57)
[2017-06-25] MEDS ORDERED: HYDROCODON-ACE1 EA16 PO (14:58)
[2017-06-25] MEDS ORDERED: CYCLOBENZAPRINE10 M1 PO (14:59)
[2017-06-25] MEDS ORDERED: ANTIFUNGAL POWDER TOP (15:23)
[2017-06-25] MEDS ORDERED: [UNRECOGNIZED DRUG - OTHER] TOP (15:23)
[2017-06-25] MEDS ORDERED: INTERDRY (15:24)
[2017-06-25] MEDS ORDERED: NOVOLOG FL100 UNIT/2 SC ×2 (15:51→15:53)
[2017-06-25] MEDS ORDERED: OXYGEN (16:07)
== END 2017-04-13 18:50 | DRG 438 ==
LOC: EDMED 11:16 → EMR2 17:04 → 5WD 18:58 → PACU 04-08 11:02 → 5WD 04-08 12:09
PROVIDERS: Emergency Medicine; Internal Medicine Nephrology; Specialist; ADMIT Hospitalist
PROC: 0F798ZZ Dilation of Common Bile Duct, Via Natural or Artificial Opening Endoscopic (ICD-10-PCS; principal; 2017-04-08)
DX: K85.90 Acute pancreatitis without necrosis or infection, unspecified (principal); N18.6 End stage renal disease; J96.11 Chronic respiratory failure with hypoxia; E11.22 Type 2 diabetes mellitus with diabetic chronic kidney disease; I12.0 Hypertensive chronic kidney disease with stage 5 chronic kidney disease or end stage renal disease; Z68.43 Body mass index [BMI] 50.0-59.9, adult; N39.0 Urinary tract infection, site not specified; E87.1 Hypo-osmolality and hyponatremia; E66.01 Morbid (severe) obesity due to excess calories; K59.00 Constipation, unspecified; E87.5 Hyperkalemia; E83.39 Other disorders of phosphorus metabolism; I25.10 Atherosclerotic heart disease of native coronary artery without angina pectoris; D63.8 Anemia in other chronic diseases classified elsewhere; F41.9 Anxiety disorder, unspecified; F32.9 Major depressive disorder, single episode, unspecified; Z79.82 Long term (current) use of aspirin; Z79.4 Long term (current) use of insulin; Z99.2 Dependence on renal dialysis; Z87.11 Personal history of peptic ulcer disease
CPT/HCPCS: C1769; C9113; J0744; J0885; J1650; J1815; J1940; J1956; J2270; J2405; J7030; P9612; Q9966